=== PATIENT | female | born 1965 | race Two or more races ===

== ENCOUNTER 2017-07-16 22:50 | Emergency (ER) | payer MEDICAID ==
[~2017-07-16] VITALS: Ht 160 cm; Wt 61.2 kg
[2017-07-16] MEDS ORDERED: Augmentin 875mg Tab ORAL ONE (23:15)
[2017-07-16] MEDS ORDERED: Tetanus/Diptheria/Pertussis Vaccine 0.5ml Syr IM ONE (23:15)
[2017-07-16] MEDS ORDERED: AUGMENTIN 875-1 EAC1 ORAL (23:54)
[2017-07-16] MEDS ORDERED: IBUPROFEN600 MG ORAL (23:54)
[2017-07-17] VITALS: BP 118/75
--- NOTE | 2017-07-17 04:22 | Emergency Room Report ---
History of Present Illness General Chief Complaint: Lower Extremity Injury Source: Patient Present Illness HPI 52-year-old female presents ED complaining of right foot pain. States approximately one hour ago she stepped on a nail while walking on the street. Tetanus unknown. Pulled the nail out of her foot. Pain is a 9 and 10, sharp, nonradiating. Denies any other injury. No other aggravating relieving factors. Denies any other associated symptoms Allergies: Coded Allergies: CODEINE (Verified Allergy, Unknown, 07/16/17) Patient History Past Medical History: none Past Surgical History: none Pertinent Family History: none Social History: Denies: smoking, alcohol use, drug use Last Menstrual Period: NA Now: No Immunizations: UTD Reviewed Nursing Documentation: PMH: Agreed, PSxH: Agreed Nursing Documentation-PMH Past Medical History: No Stated History Review of Systems All Other Systems: negative except mentioned in HPI Physical Exam Vital Signs Date Time Temp Pulse Resp B/P (MAP) Pulse Ox O2 Delivery O2 Flow Rate FiO2 07/16/17 23:00 98.2 79 18 118/75 98 Room Air Sp02 EP Interpretation: reviewed, normal General Appearance: no apparent distress, alert, GCS 15, non-toxic Head: normocephalic Eyes: bilateral eye normal inspection, bilateral eye PERRL ENT: normal ENT inspection Neck: normal inspection Respiratory: normal inspection Cardiovascular #1: normal inspection Gastrointestinal: normal inspection Rectal: deferred Genitourinary: no CVA tenderness Musculoskeletal: tender - puncture wound to base of R foot. no surrounding induration/erythema. no crepitus Neurologic: alert, oriented x3, responsive, motor strength/tone normal, sensory intact, speech normal Psychiatric: normal inspection Skin: normal inspection Lymphatic: normal inspection Medical Decision Making Diagnostic Impression: Primary Impression: Puncture wound ER Course Hospital Course 52-year-old female presents to ED with puncture wound from nail to the right foot Differential diagnoses include: Fracture, dislocation, sprain, contusion Clinical course Patient placed on stretcher. After initial history and physical, I ordered pain medications and Xrays of R foot, tetanus, augmentin Xrays prelim read shows no acute fracture/dislocation. no evidence of foreign body wound irrigated. dressing applied Diagnosis - puncture wound Stable and discharged to home with prescription for Motrin, Augmentin. weight bear as tolerated. Followup with PMD. Return to ED if symptoms recur or worsen Other X-Ray Diagnostic Results Other X-Ray Diagnostic Results : X-Ray ordered: R foot # of Views/Limited Vs Complete: 3 View Indication: Pain EP Interpretation: Yes Interpretation: no dislocation, no soft tissue swelling, no fractures Impression: No acute disease Electronically Signed by: Electronically signed by Maged Jaffe MD Last Vital Signs Date Time Temp Pulse Resp B/P (MAP) Pulse Ox O2 Delivery O2 Flow Rate FiO2 07/16/17 23:00 98.2 79 18 118/75 98 Room Air Status: improved Disposition: HOME, SELF-CARE Condition: Stable Scripts Amoxicillin/Potassium Clav 875-125* (AUGMENTIN 875-125 TABLET*) 1 Each Tablet 1 TAB ORAL TWICE A DAY, #14 TAB Prov: MAGED JAFFE M.D. 07/16/17 Ibuprofen* (MOTRIN*) 600 Mg Tablet 600 MG ORAL Q8H Y for For Pain, #30 TAB 0 Refills Prov: MAGED JAFFE M.D. 07/16/17 Referrals: [facility],REFERRING (PCP) Patient Instructions: Puncture Wound, [id number] MAGED JAFFE M.D. Jul 17, 2017 04:22
== END 2017-07-17 00:05 | disposition home or self-care (01) ==
LOC: EMR 07-17 00:01
DX: S91.331A Puncture wound without foreign body, right foot, initial encounter (principal); W22.8XXA Striking against or struck by other objects, initial encounter; Y92.414 Local residential or business street as the place of occurrence of the external cause; Z23 Encounter for immunization; Z88.6 Allergy status to analgesic agent
CPT/HCPCS: 90471; 90715; 99284

== ENCOUNTER 2019-11-02 10:29 | Emergency (ER) | payer MEDICAID ==
[~2019-11-02] VITALS: Ht 157.5 cm; Wt 67.1 kg
[~2019-11-02 10:29] MED LIST: AUGMENTIN 875-1 EAC1 ORAL; IBUPROFEN600 MG ORAL
[2019-11-02] MEDS ORDERED: ACETAMINOPHEN650 M3 ORAL (10:44)
--- NOTE | 2019-11-02 10:48 | NUR ---
ED Nurse Note: pt voiding urine sample. amb slowly to rm for md henley. no N/V/D. no dyspnea no body aches. relates lower abd pain
--- NOTE | 2019-11-02 10:57 | Emergency Room Report ---
History of Present Illness General Chief Complaint: Abdominal Pain Source: Patient Present Illness HPI Disclaimer: Please note that this report is being documented using [employer] technology. This can lead to erroneous entry secondary to incorrect interpretation by the dictating instrument. HPI: 54-year-old female presents for evaluation of abdominal pain. She noted suprapubic pain rating to the both quad lower quadrant starting last night. Cannot recall inciting event. Pain is 8/10. Denies fever, chills, nausea, vomiting or diarrhea. Denies dysuria, hematuria, urgency or frequency. Denies vaginal bleeding or vaginal discharge. History of cholecystectomy. Has not taken any medication prior to arrival. No exacerbating or relieving factors noted. PMH: Denies PSH: Laparoscopic cholecystectomy Allergies: Codeine Social Hx: Denies drug or alcohol abuse Allergies: Coded Allergies: CODEINE (Verified Allergy, Unknown, 07/16/17) COVID-19 Screening Contact w/high risk pt: No Recent Travel to affected area: No Experienced COVID-19 symptoms?: No Nursing Documentation-PMH Past Medical History: No Stated History Review of Systems All Other Systems: negative except mentioned in HPI Physical Exam Vital Signs Date Time Temp Pulse Resp B/P (MAP) Pulse Ox O2 Delivery O2 Flow Rate FiO2 11/02/19 10:40 98.4 79 18 128/74 (92) 95 Room Air General: Awake and alert, appears uncomfortable HEENT: NC/AT. EOMI. Cardiovascular: RRR. S1 and S2 normal. No murmur appreciated Resp: Normal work of breathing. No cough, wheezing or crackles appreciated Abdomen: Abdomen is soft, nondistended. Tender palpation of the suprapubic, right lower quadrant left lower quadrant without rebound or mass. Skin: Intact. No abrasions, laceration or rash over the exposed skin MSK: Normal tone and bulk. Moving all extremities. No obvious deformity. Neuro: Awake and alert. Mentating appropriately. Medical Decision Making Diagnostic Impression: Primary Impression: Abdominal pain Additional Impression: Cystitis ER Course 54-year-old female presents for evaluation of lower quadrant tenderness beginning last night. Differential includes was not limited to UTI, pyelonephritis, nephrolithiasis, appendicitis, diverticulitis, bowel obstruction , bowel perforation, gastritis, pancreatitis, food poisoning, constipation to name a few. Patient appears uncomfortable has tender abdomen bilaterally. Concern for possible surgical emergency such as perforated abdomen or appendicitis. Will obtain a CT scan of the abdomen, draw broad labs, start IV fluids and pain medications. Laboratory Tests Test 11/02/19 10:45 11/02/19 10:55 Urine Color Pale yellow Urine Appearance Clear Urine pH 5 (4.5-8.0) Urine Specific [place] 1.010 (1.005-1.035) Urine Protein Negative (NEGATIVE) Urine Glucose (UA) Negative (NEGATIVE) Urine Ketones Negative (NEGATIVE) Urine Blood Negative (NEGATIVE) Urine Nitrite Negative (NEGATIVE) Urine Bilirubin Negative (NEGATIVE) Urine Urobilinogen Normal MG/DL (0.0-1.0) Urine Leukocyte Esterase 3+ (NEGATIVE) H Urine RBC 0 /HPF (0 - 2) Urine WBC 5-10 /HPF (0 - 2) H Urine Squamous Epithelial Cells Few /LPF (NONE/OCC) Urine Bacteria Few /HPF (NONE) Urine HCG, Qualitative Negative (NEGATIVE) White Blood Count 8.6 K/UL (4.8-10.8) Red Blood Count 4.91 M/UL (4.20-5.40) Hemoglobin 15.4 G/DL (12.0-16.0) Hematocrit 43.5 % (37.0-47.0) Mean Corpuscular Volume 89 FL (80-99) Mean Corpuscular Hemoglobin 31.3 PG (27.0-31.0) H Mean Corpuscular Hemoglobin Concent 35.3 G/DL (32.0-36.0) Red Cell Distribution Width 11.7 % (11.6-14.8) Platelet Count 243 K/UL (150-450) Mean Platelet Volume 5.6 FL (6.5-10.1) L Neutrophils (%) (Auto) 48.9 % (45.0-75.0) Lymphocytes (%) (Auto) 38.7 % (20.0-45.0) Monocytes (%) (Auto) 6.9 % (1.0-10.0) Eosinophils (%) (Auto) 4.4 % (0.0-3.0) H Basophils (%) (Auto) 1.2 % (0.0-2.0) Sodium Level 140 MMOL/L (136-145) Potassium Level 3.7 MMOL/L (3.5-5.1) Chloride Level 105 MMOL/L (98-107) Carbon Dioxide Level 25 MMOL/L (21-32) Anion Gap 10 mmol/L (5-15) Blood Urea Nitrogen 15 mg/dL (7-18) Creatinine 0.7 MG/DL (0.55-1.30) Estimated Glomerular Filtration Rate > 60 mL/min (>60) Glucose Level 120 MG/DL (74-106) H Calcium Level 9.5 MG/DL (8.5-10.1) Total Bilirubin 0.5 MG/DL (0.2-1.0) Aspartate Amino Transferase (AST) 25 U/L (15-37) Alanine Aminotransferase (ALT) 30 U/L (12-78) Alkaline Phosphatase 104 U/L (46-116) Total Protein 7.8 G/DL (6.4-8.2) Albumin 3.9 G/DL (3.4-5.0) Globulin 3.9 g/dL Albumin/Globulin Ratio 1.0 (1.0-2.7) Lipase 201 U/L (73-393) CT/MRI/US Diagnostic Results CT/MRI/US Diagnostic Results : Impression Findings: Lack of enteric contrast limits assessment of the GI tract. The appendix is normal. No evidence of colonic diverticulosis or diverticulitis. No small bowel distention. Distal esophagus, stomach, duodenum are unremarkable. No free or loculated intraperitoneal gas or fluid is evident. The liver is unremarkable. The gallbladder has been removed. Unremarkable bile ducts. The pancreas, spleen, adrenals, kidneys are unremarkable. No renal or ureteral calculi, hydronephrosis, or hydroureter. The bladder is distended but otherwise unremarkable. The uterus and adnexal structures are unremarkable. The included lung bases are clear except for minimal posterior dependent atelectatic changes. The bones demonstrate mild degenerative spondylosis changes. There is a 12 mm densely sclerotic lesion in the left medial iliac bone. Impression: Limited assessment of the GI tract, due to lack of enteric contrast administration No definite acute or significant abnormality Evidence of prior cholecystectomy Incidental findings as noted, including probable left medial iliac bone island, posterior dependent pulmonary atelectatic changes, mild degenerative spondylosis changes Dictated By: Jose Alejandro Drake MD Electronically Signed By: Jose Alejandro Drake MD Signed Date/Time 11/02/19 1302 CC: Bassem Doll MD Reevaluation Time: 13:42 Last Vital Signs Date Time Temp Pulse Resp B/P (MAP) Pulse Ox O2 Delivery O2 Flow Rate FiO2 11/02/19 10:40 98.4 79 18 128/74 (92) 95 Room Air Reevaluation Impression Labs have returned within normal limits. CT scan shows a normal-appearing appendix, no evidence of obstruction, perforation or other significant pathology. The patient is symptomatically improved. She states that she had a similar episode approximately 1 month ago and made an appoint with her [employer] MANAGER which is scheduled for November 09. I encouraged her to follow-up at that appointment. I will prescribe Bentyl as she describes it as a spasm and cramping as well as Keflex for possible cystitis due to the inflammatory markers seen in her urine. Patient will follow-up on an outpatient basis with her AR[employer] MANAGER and PMD and return to the emergency department new or worsening symptoms. She understands and agrees with this treatment plan. Disposition: HOME, SELF-CARE Condition: Stable Scripts Dicyclomine Hcl* (DICYCLOMINE HCL*) 10 Mg Capsule 10 MG ORAL TID, #10 CAP Prov: Bassem Doll MD 11/02/19 Ibuprofen* (MOTRIN*) 600 Mg Tablet 600 MG ORAL Q6H PRN for For Pain, #30 TAB 0 Refills Prov: Bassem Doll MD 11/02/19 Cephalexin* (KEFLEX*) 500 Mg Capsule 500 MG ORAL EVERY 12 HOURS, #14 CAP 0 Refills Prov: Bassem Doll MD 11/02/19 Bassem Doll MD Nov 02, 2019 10:57
[2019-11-02] MEDS ORDERED: Morphine Sulfate 4mg/ml Inj (IV USE ONLY) IVP ONE (11:00)
[2019-11-02] MEDS ORDERED: Omnipaque-300 100ml vial INJ PRN (11:00)
--- NOTE | 2019-11-02 11:05 | NUR ---
ED Nurse Note: pt tolerates lab and iv start well meds given as ordered. no n/v. placed on alarm security or surveillance monitor. aware to remain npo
[2019-11-02 11:15] LABS: BASOPHILS % (AUTO) 1.2 % (0.0-2.0); EOSINOPHILS % (AUTO) 4.4 % (0.0-3.0); HEMATOCRIT 43.5 % (37.0-47.0); HEMOGLOBIN 15.4 G/DL (12.0-16.0); LYMPHOCYTES % (AUTO) 38.7 % (20.0-45.0); MEAN CORPUSCULAR VOLUME 89 FL (80-99); MONOCYTES % (AUTO) 6.9 % (1.0-10.0); NEUTROPHILS % (AUTO) 48.9 % (45.0-75.0); PLATELET COUNT 243 K/UL (150-450); RED BLOOD COUNT 4.91 M/UL (4.20-5.40); RED CELL DISTRIBUTION WIDTH 11.7 % (11.6-14.8); WHITE BLOOD COUNT 8.6 K/UL (4.8-10.8)
[2019-11-02 11:16] LABS: APPEARANCE,URINE CLEAR; BILIRUBIN, URINE NEGATIVE (NEGATIVE); COLOR,URINE PALE YELLOW; GLUCOSE, URINE (UA) NEGATIVE (NEGATIVE); KETONES,URINE NEGATIVE (NEGATIVE); LEUKOCYTE ESTERASE ,URINE 3+ (NEGATIVE); NITRITE,URINE NEGATIVE (NEGATIVE); PH,URINE 5 (4.5-8.0); PROTEIN,URINE NEGATIVE (NEGATIVE); UROBILINOGEN,URINE NORMAL MG/DL (0.0-1.0)
[2019-11-02 11:26] LABS: ANION GAP 10 mmol/L (5-15); BLOOD UREA NITROGEN 15 mg/dL (7-18); CALCIUM 9.5 MG/DL (8.5-10.1); CARBON DIOXIDE 25 MMOL/L (21-32); CHLORIDE 105 MMOL/L (98-107); CREATININE 0.7 MG/DL (0.55-1.30); POTASSIUM 3.7 MMOL/L (3.5-5.1); SODIUM 140 MMOL/L (136-145)
[2019-11-02 11:31] LABS: ALANINE AMINOTRANSFERASE 30 U/L (12-78); ALBUMIN 3.9 G/DL (3.4-5.0); ALKALINE PHOSPHATASE 104 U/L (46-116); ASPARTATE AMINO TRANSFERASE 25 U/L (15-37); BILIRUBIN,TOTAL 0.5 MG/DL (0.2-1.0)
--- NOTE | 2019-11-02 12:57 | NUR ---
ED Nurse Note: back from ct scan, amb to brp well. no n/v
[2019-11-02 12:58] VITALS: BP 128/64
--- NOTE | 2019-11-02 13:07 | Diagnostic Imaging Report ---
Clinical Indication: Abdominal pain, suprapubic pain radiating to both lower quadrants, 8 out of 10 Technique: No oral contrast utilized, per emergency room physician request IV administration nonionic contrast. Venous phase spiral acquisition obtained through the abdomen and pelvis. Multiplanar reconstructions were generated. Total dose length product 290 mGycm. CTDIvol(s) 5 mGy. Dose reduction achieved using automated exposure control Comparison: none Findings: Lack of enteric contrast limits assessment of the GI tract. The appendix is normal. No evidence of colonic diverticulosis or diverticulitis. No small bowel distention. Distal esophagus, stomach, duodenum are unremarkable. No free or loculated intraperitoneal gas or fluid is evident. The liver is unremarkable. The gallbladder has been removed. Unremarkable bile ducts. The pancreas, spleen, adrenals, kidneys are unremarkable. No renal or ureteral calculi, hydronephrosis, or hydroureter. The bladder is distended but otherwise unremarkable. The uterus and adnexal structures are unremarkable. The included lung bases are clear except for minimal posterior dependent atelectatic changes. The bones demonstrate mild degenerative spondylosis changes. There is a 12 mm densely sclerotic lesion in the left medial iliac bone. Impression: Limited assessment of the GI tract, due to lack of enteric contrast administration No definite acute or significant abnormality Evidence of prior cholecystectomy Incidental findings as noted, including probable left medial iliac bone island, posterior dependent pulmonary atelectatic changes, mild degenerative spondylosis changes The CT scanner at [facility] is accredited by the [employer] and the scans are performed using protocols designed to limit radiation exposure to as low as reasonably achievable to attain images of sufficient resolution adequate for diagnostic evaluation.
--- NOTE | 2019-11-02 13:32 | NUR ---
ED Nurse Note: pt reeval by . aware of tests results.
[2019-11-02] MEDS ORDERED: IBUPROFEN600 M1 ORAL ×3 (13:37→15:56)
[2019-11-02] MEDS ORDERED: DICYCLOMINE HCL10 MG ORAL ×3 (13:37→15:56)
[2019-11-02] MEDS ORDERED: CEPHALEXIN500 MG ORAL ×3 (13:37→15:56)
[2019-11-02 14:15] VITALS: BP 135/71
--- NOTE | 2019-11-02 14:15 | NUR ---
ED Nurse Note: Pt cleared by health care Provider for discharge. DC instructions/prescription (sent electronically) was given and explained to pt and verbalized understanding of teachings. All medical devices such as ID band removed. Pt is AAO x4, ambulatory and left with all personal belongings.
== END 2019-11-02 14:17 | disposition home or self-care (01) ==
LOC: EMR 10:54
DX: R10.30 Lower abdominal pain, unspecified (principal); Z90.49 Acquired absence of other specified parts of digestive tract; Z88.6 Allergy status to analgesic agent; M47.9 Spondylosis, unspecified
CPT/HCPCS: 36415; 74177; 80053; 81003; 81025; 83690; 85025; 96361; 96374; J2270; J7030; Q9965; Z7502; 99284